=== PATIENT | female | born 1955 | race Caucasian/White ===

== ENCOUNTER 2019-10-25 13:24 | Outpatient (CLI) | payer OTHER, SELFPAY ==
[2019-10-25 13:30] VITALS: BP 107/71; PULSE 55; RESP 16; TEMP 37; O2SAT 98
[2019-10-25] MEDS: denosumab 60 mg SDV SUBCUT (13:50)
[2019-10-25 14:03] VITALS: BP 127/84; PULSE 55; RESP 16; TEMP 37.1
== END 2019-10-25 13:25 | disposition home or self-care (01) ==
LOC: RHEOACUTE 13:25
PROVIDERS: Family Provider Family Medicine; PCP Family Medicine; Visit Provider Internal Medicine Rheumatology
DX: M81.0 Age-related osteoporosis without current pathological fracture (principal)
CPT/HCPCS: 96372; J0897

== ENCOUNTER 2020-04-09 13:19 | Observation (INO) | payer OTHER, SELFPAY ==
[2020-04-09] VITALS (7 sets, daily range): BP systolic 115–140; BP diastolic 72–94; PULSE 76–128; RESP 15–24; TEMP 36.5–36.8; O2SAT 93–100; BMI 23.6
--- NOTE | 2020-04-09 13:37 | W.ED.CHESTPA ---
HPI - Chest Pain General: Chief Complaint: Chest Pain Stated Complaint: heart problems Time Seen by Provider: 04/09/20 13:36 History of Present Illness: HPI narrative: 64-year-old female comes in with chest discomfort. Shortly after arrival she developed A. fib with RVR she had some episodes this morning her she was weak and dizzy especially with exertion. She was seen at urgent care clinic over the weekend had a serous otitis media. She had previously been diagnosed with hypertension but is not currently on any medications. She has some chest pain which she relates to being reflux she has had it intermittently has not really changed any significant level. There is no radiation to the neck or arms. MD complaint: chest discomfort Onset (ago): minute(s) Timing of current episode: episodic Prior episodes: No Onset: during rest Pain location: left chest Pain radiation: none Severity: mild Quality: heaviness Relieving factors: nothing Exacerbating factors: nothing Associated symptoms: Reports dyspnea and palpitations; Deny abdominal pain, diaphoresis, fever(s), leg edema, nausea, sense of impending doom, syncope, vomiting or other Treatment prior to arrival: none Review of Systems Const: Denies: fever(s) or diaphoresis ENMT: Denies: throat pain, ear or mastoid pain, nasal discharge or nasal congestion Card: Reports: palpitations; Denies: syncope Resp: Reports: dyspnea GI: Denies: abdominal pain, nausea or vomiting : Denies: flank pain, difficulty voiding, dysuria, urinary frequency or urinary urgency Skin/Breast: Denies: rash or pruritus PFS ED PFSH: Medical History Family history of coronary artery disease Gastritis GERD (gastroesophageal reflux disease) Surgical History Status post appendectomy Status post cholecystectomy Status post hysterectomy Family History Father Stroke Atrial fibrillation Mother CAD (coronary artery disease) Social History Smoking and tobacco status: never smoked Alcohol intake: never Physical Exam Const: COMMON NORMALS: no acute distress GENERAL APPEARANCE: cooperative and comfortable ORIENTATION/CONSCIOUSNESS: Yes awake, Yes oriented to person, Yes oriented to place and Yes oriented to time HENMT: COMMON NORMALS: normocephalic, atraumatic, hearing grossly normal bilaterally, external ears normal, EAC's normal, TM's normal bilaterally, Normal nasal mucous membranes and turbinates present, moist oral mucous membranes and oropharynx normal HEAD & SCALP: normocephalic and atraumatic NOSE: Normal nasal mucous membranes and turbinates present EXTERNAL EAR: Yes external ears normal EXTERNAL AUDITORY CANAL: EAC's normal TYMPANIC MEMBRANE: TM's normal bilaterally Eye: COMMON NORMALS: Equal, round and reactive pupils present, EOMs intact bilaterally, conjunctivae normal and no scleral icterus CONJUNCTIVA: Yes conjunctivae normal PUPIL: Yes Equal, round and reactive pupils present Neck/C-Spine: COMMON NORMALS: full ROM, no lymphadenopathy, supple and no JVD Lymph: LYMPHATIC: no lymphadenopathy noted and no lymphedema noted Resp: COMMON NORMALS: normal respiratory effort, No retractions, No use of accessory muscles and clear to auscultation bilaterally AUSCULTATION: clear to auscultation bilaterally Cardio: COMMON NORMALS: no JVD and No murmurs present (Cardio) RATE: tachycardic RHYTHM: abnormal rhythm irregularly irregular GI: COMMON NORMALS: Soft to palpation and No hepatosplenomegaly present AUSCULTATION: Yes normoactive bowel sounds PALPATION: Yes Soft to palpation, No Tenderness to palpation present (GI), No Guarding due to palpation present (GI) and Yes No hepatosplenomegaly present Extremity: COMMON NORMALS: normal to inspection, capillary refill normal, no clubbing, cyanosis or edema, no calf tenderness and no pedal edema Neuro: SENSORIUM/ORIENTATION: Yes oriented to person, Yes oriented to place and Yes oriented to time Skin: COMMON NORMALS: no rashes or lesions noted GENERAL SKIN EXAM: no rashes or lesions noted Course Vital Signs: Vital signs: Vital Signs Temperature 97.9 F 04/10/20 14:23 Pulse Rate 50 L 04/10/20 14:23 Respiratory Rate 13 04/10/20 14:23 Blood Pressure 111/73 04/10/20 14:23 Pulse Oximetry 100 04/10/20 14:23 MDM - Chest Pain MDM Narrative: Medical decision making narrative: Patient has new onset A. fib with rapid ventricular response she was given IV Lopressor and p.o. Lopressor will observe her overnight to make sure we retain rate control and evaluate for potential causes. Discussed with hospitalist will admit Lab Data: Labs: Lab Results 04/09/20 04/09/20 04/09/20 Range/Units 13:53 13:53 13:53 WBC 12.0 H (4.0-10.0) 10^3/ uL RBC 5.22 (4.1-5.3) 10^6/u L Hgb 15.6 H (11.5-15.3) g/dL Hct 47.6 H (37.0-47.0) % MCV 91.2 (81-99) fL MCH 29.9 (28.0-34.0) pg MCHC 32.8 (30.0-36.0) g/dL RDW 12.3 (12.1-15.1) % Plt Count 321 (130-400) 10^3/c mm MPV 9.9 (7.4-10.4) fL Neut % (Auto) 52.9 % Lymph % (Auto) 36.5 % [place] % (Auto) 9.3 % Eos % (Auto) 0.6 % Baso % (Auto) 0.3 % Neut # (Auto) 6.34 (1.8-7.7) 10^3/u L Lymph # (Auto) 4.4 (0.8-4.8) 10^3/u L [place] # (Auto) 1.1 H (0.2-0.9) 10^3/u L Eos # (Auto) 0.1 (0.0-0.8) 10^3/u L Baso # (Auto) 0.0 (0.0-0.1) 10^3/u L Nucleated RBC % (a uto) 0 % Nucleated RBCs # 0.0 /100WBC Sodium 140 (136-145) mmol/L Potassium 3.2 L (3.5-5.1) mmol/L Chloride 101 (98-107) mmol/L Carbon Dioxide 26 (22-29) mmol/L Anion Gap 16.2 (5-19) BUN 18 (8-23) mg/dL Creatinine 0.7 (0.5-0.9) mg/dL GFR Calculation 84.8 L (90-130) mL/min Glucose 89 (65-115) mg/dL Estimat Average Gl ucose Hemoglobin A1c (4.0-6.0) % Calculated Osmolal ity 286 (285-295) mOsm/k g Calcium 10.0 (8.5-10.5) mg/dL Magnesium (1.7-2.3) mg/dL Total Bilirubin 0.4 (0.15-1.2) mg/dL AST 17 (0-32) U/L ALT 15 (0-33) U/L Alkaline Phosphata se 69 (35-105) IU/L Troponin T Baselin e 11 H (0-10) ng/L NT-Pro-B Natriuret Pep (0-125) pg/mL Total Protein 7.8 (6.6-8.7) g/dL Albumin 4.8 (3.5-5.2) g/dL Globulin 3.0 (1.3-4.6) g/dL TSH (0.27-4.20) uIU/ mL Urine Color (Yellow) Urine Appearance (CLEAR) Urine pH (5-7) Ur Specific Gravit y (1.005-1.030) Urine Protein (Negative) Urine Glucose (UA) (Normal) Urine Ketones (Negative) Urine Blood (Negative) Urine Nitrate (Negative) Urine Bilirubin (NEGATIVE) Prot Sulfosalicyli c Acd (Negative) Urine Urobilinogen (Negative) mg/dL Ur Leukocyte Pretty ase (Negative) Urine RBC (0-2) /hpf Urine WBC (0-5) /hpf Ur Squamous Epith Cells (0-5) Amorphous Sediment Urine Bacteria (NONE) 04/09/20 04/09/20 04/09/20 Range/Units 13:53 13:53 13:53 WBC (4.0-10.0) 10^3/ uL RBC (4.1-5.3) 10^6/u L Hgb (11.5-15.3) g/dL Hct (37.0-47.0) % MCV (81-99) fL MCH (28.0-34.0) pg MCHC (30.0-36.0) g/dL RDW (12.1-15.1) % Plt Count (130-400) 10^3/c mm MPV (7.4-10.4) fL Neut % (Auto) % Lymph % (Auto) % [place] % (Auto) % Eos % (Auto) % Baso % (Auto) % Neut # (Auto) (1.8-7.7) 10^3/u L Lymph # (Auto) (0.8-4.8) 10^3/u L [place] # (Auto) (0.2-0.9) 10^3/u L Eos # (Auto) (0.0-0.8) 10^3/u L Baso # (Auto) (0.0-0.1) 10^3/u L Nucleated RBC % (a uto) % Nucleated RBCs # /100WBC Sodium (136-145) mmol/L Potassium (3.5-5.1) mmol/L Chloride (98-107) mmol/L Carbon Dioxide (22-29) mmol/L Anion Gap (5-19) BUN (8-23) mg/dL Creatinine (0.5-0.9) mg/dL GFR Calculation (90-130) mL/min Glucose (65-115) mg/dL Estimat Average Gl ucose 108 Hemoglobin A1c 5.4 (4.0-6.0) % Calculated Osmolal ity (285-295) mOsm/k g Calcium (8.5-10.5) mg/dL Magnesium 2.3 (1.7-2.3) mg/dL Total Bilirubin (0.15-1.2) mg/dL AST (0-32) U/L ALT (0-33) U/L Alkaline Phosphata se (35-105) IU/L Troponin T Baselin e (0-10) ng/L NT-Pro-B Natriuret Pep 1091 H (0-125) pg/mL Total Protein (6.6-8.7) g/dL Albumin (3.5-5.2) g/dL Globulin (1.3-4.6) g/dL TSH 4.53 H (0.27-4.20) uIU/ mL Urine Color (Yellow) Urine Appearance (CLEAR) Urine pH (5-7) Ur Specific Gravit y (1.005-1.030) Urine Protein (Negative) Urine Glucose (UA) (Normal) Urine Ketones (Negative) Urine Blood (Negative) Urine Nitrate (Negative) Urine Bilirubin (NEGATIVE) Prot Sulfosalicyli c Acd (Negative) Urine Urobilinogen (Negative) mg/dL Ur Leukocyte Pretty ase (Negative) Urine RBC (0-2) /hpf Urine WBC (0-5) /hpf Ur Squamous Epith Cells (0-5) Amorphous Sediment Urine Bacteria (NONE) 04/09/20 Range/Units 14:51 WBC (4.0-10.0) 10^3/ uL RBC (4.1-5.3) 10^6/u L Hgb (11.5-15.3) g/dL Hct (37.0-47.0) % MCV (81-99) fL MCH (28.0-34.0) pg MCHC (30.0-36.0) g/dL RDW (12.1-15.1) % Plt Count (130-400) 10^3/c mm MPV (7.4-10.4) fL Neut % (Auto) % Lymph % (Auto) % [place] % (Auto) % Eos % (Auto) % Baso % (Auto) % Neut # (Auto) (1.8-7.7) 10^3/u L Lymph # (Auto) (0.8-4.8) 10^3/u L [place] # (Auto) (0.2-0.9) 10^3/u L Eos # (Auto) (0.0-0.8) 10^3/u L Baso # (Auto) (0.0-0.1) 10^3/u L Nucleated RBC % (a uto) % Nucleated RBCs # /100WBC Sodium (136-145) mmol/L Potassium (3.5-5.1) mmol/L Chloride (98-107) mmol/L Carbon Dioxide (22-29) mmol/L Anion Gap (5-19) BUN (8-23) mg/dL Creatinine (0.5-0.9) mg/dL GFR Calculation (90-130) mL/min Glucose (65-115) mg/dL Estimat Average Gl ucose Hemoglobin A1c (4.0-6.0) % Calculated Osmolal ity (285-295) mOsm/k g Calcium (8.5-10.5) mg/dL Magnesium (1.7-2.3) mg/dL Total Bilirubin (0.15-1.2) mg/dL AST (0-32) U/L ALT (0-33) U/L Alkaline Phosphata se (35-105) IU/L Troponin T Baselin e (0-10) ng/L NT-Pro-B Natriuret Pep (0-125) pg/mL Total Protein (6.6-8.7) g/dL Albumin (3.5-5.2) g/dL Globulin (1.3-4.6) g/dL TSH (0.27-4.20) uIU/ mL Urine Color Straw (Yellow) Urine Appearance Clear (CLEAR) Urine pH 8 H (5-7) Ur Specific Gravit y 1.010 (1.005-1.030) Urine Protein Neg (Negative) Urine Glucose (UA) Norm (Normal) Urine Ketones Negative (Negative) Urine Blood Neg (Negative) Urine Nitrate Negative (Negative) Urine Bilirubin Neg (NEGATIVE) Prot Sulfosalicyli c Acd Negative (Negative) Urine Urobilinogen Norm (Negative) mg/dL Ur Leukocyte Pretty ase Trace H (Negative) Urine RBC 0-4 H (0-2) /hpf Urine WBC 0-4 H (0-5) /hpf Ur Squamous Epith Cells 0-4 H (0-5) Amorphous Sediment Not Reportable Urine Bacteria Trace (NONE) Discharge Plan Discharge Patient Disposition: Admitted As Inpatient Admit Provider: Christopher Vaughan Condition: Stable Referrals: Natalie Loomis MD [Physician] - 1 week (YOU WILL HAVE A FOLLOW UP APPOINTMENT WITH DR LOOMIS IN [facility] ON Wednesday AT 0915 TO DO YOUR CHECK IN. IF THERE ARE ANY QUESTIONS PLEASE CALL HEART CARE SERVICES AT [phone]) Osman Arriaza MD [Primary Care Provider] - 4-7 days (YOU WILL HAVE A FOLLOW UP APPOINTMENT WITH DR. ARRIAZA AT [facility] ON March AT 10:00. IF YOU HAVE ANY QUESTIONS PLEASE CALL [phone].) Discharge Diet: Cardiac Discharge Activity: Resume usual activity Patient Instructions: Metoprolol (By mouth), Aspirin (By mouth), Atorvastatin (By mouth), Apixaban (By mouth), Atrial Fibrillation (DC), Chest Pain (DC), Chest Pain Stoplight Additional Instructions: -If you have chest pain or shortness of breath please come back to the emergency room -Please take metoprolol as prescribed, if you feel lightheaded or dizzy after taking the medication please stop in call primary care -If you repeat episodes of chest palpitations come back to the emergency room -Please follow-up with cardiology in 1 week -If you have bloody or black stools please come back to the emergency room Discharge Date/Time: 04/09/20 15:57 Coding Level of Care Code ED Radial Router Operator for Sugey Nolan
--- NOTE | 2020-04-09 13:52 | XRR_ITS ---
PROCEDURE INFORMATION: Exam: XR Chest, 1 View Exam date and time: 04/09/2020 1:54 PM Age: 64 years old Clinical indication: Dyspnea TECHNIQUE: Imaging protocol: XR of the chest Views: 1 view. COMPARISON: No relevant prior studies available. FINDINGS: Lungs: Unremarkable. No consolidation. Pleural space: Unremarkable. No pleural effusion. No pneumothorax. Heart/Mediastinum: Unremarkable. No cardiomegaly. Bones/joints: Unremarkable. XR/XR chest 1V portable [id number] IMPRESSION: No acute findings.
--- NOTE | 2020-04-09 13:52 | ECG_ITS ---
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 Measurements Intervals [place] Rate: 128 P: NM: -1 QRS: 51 QRSD: 74 T: 39 QT: 293 QTc: 429 Interpretive Statements ATRIAL FIBRILLATION WITH RAPID VENTRICULAR RESPONSE ST DEPRESSION, CONSIDER SUBENDOCARDIAL INJURY [0.1+ mV ST DEPRESSION] No previous ECG available for comparison Electronically Signed On 04-09-2020 17:28:20 CDT by Nyasia Sánchez M.D. [id number]
[2020-04-09 13:59] LABS: Basophils % 0.3 %; Eosinophils # 0.1 10^3/uL (0.0-0.8); Eosinophils % 0.6 %; Hematocrit 47.6 % (37.0-47.0); Hemoglobin 15.6 g/dL (11.5-15.3); Lymphocytes # 4.4 10^3/uL (0.8-4.8); Lymphocytes % 36.5 %; Mean Corpuscular HGB Conc 32.8 g/dL (30.0-36.0); Mean Corpuscular Hemoglobin 29.9 pg (28.0-34.0); Mean Corpuscular Volume 91.2 fL (81-99); Mean Platelet Volume 9.9 fL (7.4-10.4); Monocytes # 1.1 10^3/uL (0.2-0.9); Monocytes % 9.3 %; Neutrophils # 6.34 10^3/uL (1.8-7.7); Neutrophils % 52.9 %; Nucleated Red Blood Cells % 0 %; Platelet Count 321 10^3/cmm (130-400); Red Blood Count 5.22 10^6/uL (4.1-5.3); Red Cell Distribution Width 12.3 % (12.1-15.1)
[2020-04-09] MEDS: metoprolol tartrate 25 mg Tablet PO (14:00)
[2020-04-09] MEDS: metoprolol tartrate 1 mg/1 mL SDV 5 mL 5 MG IV (14:00)
[2020-04-09] MEDS: sodium chloride 0.9% 500 ML 999 ML IV (14:00)
[2020-04-09 14:19] LABS: Alanine Aminotransferase 15 U/L (0-33); Albumin Level 4.8 g/dL (3.5-5.2); Alkaline Phosphatase 69 IU/L (35-105); Aspartate Amino Transferase 17 U/L (0-32); Blood Urea Nitrogen 18 mg/dL (8-23); Carbon Dioxide 26 mmol/L (22-29); Chloride 101 mmol/L (98-107); Glomerular Filtration Rate 84.8 mL/min (90-130); Glucose 89 mg/dL (65-115); Osmolality Calculated 286 mOsm/kg (285-295); Sodium 140 mmol/L (136-145); Total Bilirubin 0.4 mg/dL (0.15-1.2); Total Protein 7.8 g/dL (6.6-8.7)
[2020-04-09 14:20] LABS: Anion Gap 16.2 (5-19); Potassium 3.2 mmol/L (3.5-5.1); Troponin(5th) Baseline 11 ng/L (0-10)
[2020-04-09 14:25] LABS: Thyroid Stimulating Hormone 4.53 uIU/mL (0.27-4.20)
[2020-04-09 15:39] LABS: Urine Appearance Clear (CLEAR); Urine Color Straw (Yellow)
[2020-04-09 15:40] LABS: Add Urine Microscopic? YES; Bilirubin Urine Neg (NEGATIVE); Blood Urine Neg (Negative); Glucose Urine UA Norm (Normal); Ketones Urine Negative (Negative); Leukocyte Esterase Urine Trace (Negative); Nitrate Urine Negative (Negative); Protein Urine Neg (Negative); Sulfosalicylic Acid Urine Negative (Negative); Urobilinogen Urine Norm (Negative); pH Urine 8 (5-7)
[2020-04-09 15:41] LABS: Add Urine Culture? No; Bacteria Urine TRACE; RBC Urine 0-4 /hpf (0-2); Squamous Epithelial Cell Urine 0-4 (0-5); WBC Urine 0-4 /hpf (0-5)
--- NOTE | 2020-04-09 15:52 | ECG_ITS ---
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 Measurements Intervals [place] Rate: 96 P: NM: -1 QRS: 34 QRSD: 87 T: 3 QT: 337 QTc: 426 Interpretive Statements ATRIAL FIBRILLATION MODERATE ST DEPRESSION [0.05+ mV ST DEPRESSION] Compared to ECG 04/09/2020 13:31:52 No significant changes Electronically Signed On 04-09-2020 17:30:06 CDT by Nyasia Sánchez M.D. [id number]
--- NOTE | 2020-04-09 16:04 | PM.HP ---
Providers/Chief Complaint Admitting Physician: Christopher Vaughan MD Primary Care Provider: Osman Askew MD Chief Complaint: heart problems History of Present Illness Surekha Pantoja is a 64 year old female with a past medical history of hypertension, GERD, no significant cardiac history, who presents to [facility] due to complaints of chest pain, palpitations, shortness of breath, presyncopal symptoms of lightheadedness, dizziness. Patient states that she over the weekend had some left ear fullness, was prescribed prednisone, her left ear was feeling better, she was feeling better. However this morning she woke up having episodes of intermittent chest palpitations, chest pain, she could really feel her heartbeat fast, she felt short of breath, she felt lightheaded, dizziness, so she presented to [facility] for further evaluation. No history of strokes, no stroke like symptoms, no facial droop, no paralysis, no paresthesias, no slurring of his speech. Patient tells me that she has a lot of substernal burning sensation related to GERD, so she watches what she eats, she states that the pantoprazole typically helps with her anterior chest discomfort. She does not really have a cardiac history, she did present to [facility] in 2007 for chest pain, had a negative cardiac work-up. Does have an extensive family history of CAD. No history of atrial fibrillation in the past. No history of hyperthyroidism. No history of smoking. No history of lung disease. In the emergency room patient was found to have A. fib heart rates in the 128, with some lateral ST depressions, was given 5 mg of IV metoprolol followed by 25 mg p.o. metoprolol, she remains in atrial fibrillation, but the heart rates are in the 90s to 100s, she is feeling better. Review of Systems Const: Denies: fever(s), chills, fatigue or malaise Eyes: Denies: change in vision or blurry vision ENMT: Denies: nasal congestion Card: Reports: chest pain, palpitations, irregular heart rhythm, lightheadedness and pre-syncope Resp: Reports: dyspnea; Denies: productive cough, non-productive cough or wheezing GI: Denies: abdominal pain, nausea, vomiting, hematemesis, diarrhea, constipation, hematochezia or melena : Denies: flank pain, dysuria or urinary frequency Musc: Denies: neck pain or back pain Skin/Breast: Denies: rash Neuro: Denies: headache(s), dizziness or vertigo Psych: Denies: anxiety or depression Endo: Denies: polyuria or polydipsia Medications/Allergies Home Medications Medication Instructions Recorded Confirmed Last Taken Type Dgl 1 tab PO DAILY 04/09/20 04/09/20 Unknown History Pretty-C with Bioflavonoids 1 tab PO DAILY 04/09/20 04/09/20 04/08/20 History Members [facility] 1 tab PO DAILY 04/09/20 04/09/20 04/08/20 History Probiotic 1 cap PO DAILY 04/09/20 04/09/20 Unknown History amlodipine 7.5 mg PO DAILY 04/09/20 04/09/20 04/09/20 History digestive enzymes [Enzyme Digest] 1 cap PO DAILY 04/09/20 04/09/20 Unknown History magnesium 1 tab PO DAILY 04/09/20 04/09/20 04/08/20 History multivitamin [Multiple Vitamins] 1 tab PO DAILY 04/09/20 04/09/20 04/08/20 History pantoprazole 40 mg PO DAILY 04/09/20 04/09/20 04/08/20 History prednisone 40 mg PO DAILY 04/09/20 04/09/20 04/08/20 History Allergies Allergy/AdvReac Type Severity Reaction Status Date / Time Sulfa (Sulfonamide Allergy ALGY-Joint Verified 04/09/20 14:19 Antibiotics) Pain PFSH Acute PFSH: Medical History (Updated 04/09/20 @ 16:12 by Christopher Vaughan MD) Family history of coronary artery disease Gastritis GERD (gastroesophageal reflux disease) Surgical History (Updated 04/09/20 @ 16:10 by Christopher Vaughan MD) Status post appendectomy Status post cholecystectomy Status post hysterectomy Family History (Updated 04/09/20 @ 16:10 by Christopher Vaughan MD) Father Stroke Atrial fibrillation Mother CAD (coronary artery disease) Social History (Updated 04/09/20 @ 16:11 by Christopher Vaughan MD) Smoking and tobacco status: never smoked Alcohol intake: never Substance/Drug Use: never Vitals/I&O/Wt Last Vital Signs Temp 98.3 F 08/25/20 13:24 Pulse 76 04/09/20 15:56 Resp 16 04/09/20 15:56 BP 128/76 04/09/20 15:56 Pulse Ox 97 04/09/20 15:56 Weight last 48 hrs Weight 62.596 kg Physical Exam Const: COMMON NORMALS: no acute distress and patient oriented x3 GENERAL APPEARANCE: cooperative and comfortable HENMT: COMMON NORMALS: normocephalic HEAD & SCALP: normocephalic Eye: COMMON NORMALS: Equal, round and reactive pupils present and EOMs intact bilaterally GENERAL EYE: appearance normal, both eyes and all related structures PUPIL: Yes Equal, round and reactive pupils present DIRECT OPHTHALMOSCOPY: Yes no papilledema Neck/C-Spine: COMMON NORMALS: full ROM, no lymphadenopathy, no JVD and Thyroid normal THYROID: Thyroid normal Lymph: LYMPHATIC: no lymphadenopathy noted Resp: COMMON NORMALS: normal respiratory effort, No retractions, No use of accessory muscles and clear to auscultation bilaterally AUSCULTATION: clear to auscultation bilaterally Cardio: COMMON NORMALS: no JVD, regular rate, regular rhythm, S1 normal heart sound present, S2 normal heart sound present, No gallops present (Cardio), No clicks present (Cardio) and No murmurs present (Cardio) RATE: regular rate RHYTHM: abnormal rhythm HEART SOUNDS: S1 normal heart sound present and S2 normal heart sound present GI: COMMON NORMALS: Normal to inspection, nondistended, normoactive bowel sounds present, Soft to palpation, non-tender and No hepatosplenomegaly present PALPATION: Yes Soft to palpation and Yes No hepatosplenomegaly present Extremity: COMMON NORMALS: normal to inspection, full ROM and no pedal edema Neuro: COMMON NORMALS: patient oriented x3, CN's II-XII intact bilaterally, moves all extremities and no focal motor deficits Psych: COMMON NORMALS: mental status grossly normal, Normal thought process present and cooperative THOUGHT PROCESS: Normal thought process present Data : 04/09/20 13:53 04/09/20 13:53 A&P Assessment and plan (1) New onset atrial fibrillation: -Chest pain, palpitations, shortness of breath, presyncopal episodes likely related to atrial fibrillation -Heart rates in the 128 in the ER, EKG showed atrial fibrillation, with lateral ST depressions, received 5 mg of IV metoprolol, 25 mg of p.o. metoprolol, heart rates in the 90s-100s, feeling better, symptom-free -In 2007 patient had complaints of chest pain, palpitations, had a relatively unremarkable echocardiogram, showed small area of slightly decreased persistent tracer uptake in the apical anterior septal region likely representing attenuation artifact, left ventricular wall motion analysis revealed hypokinesia of the basal and mid inferior wall region, was started on Coreg on that time, but seems to be discontinued Plan: -Admit to cardiac stepdown unit -Telemetry monitoring -Continue serial EKGs, troponins -We will order a cardiac echocardiogram -Start metoprolol 50 twice daily -We will add Eliquis 5 mg twice daily -Monitor for bloody black stools, monitor hemoglobin -We will continue to monitor, if abnormal EKGs or troponins, or abnormal echocardiogram, will proceed to stress testing -Follow TSH, magnesium -Full code -Eliquis for DVT prophylaxis Status: Acute (2) Gastritis: Status: Acute (3) GERD (gastroesophageal reflux disease): Status: Acute (4) Hypertension: Status: Acute Attestations Medical Necessity Statement*: Patient requires hospitalization, outpatient with observation, for new onset atrial fibrillation, chest pain Coding Level of Care Code Acute Clinical Liaison for [facility] Fwd Diagnoses New onset atrial fibrillation I48.91 Gastritis K29.70 GERD (gastroesophageal reflux disease) K21.9 Hypertension I10
--- NOTE | 2020-04-09 16:28 | USCV_ITS ---
Surekha Pantoja Age: 64 Gender: F : 1955 Exam Date: 04/09/2020 16:57 Ordering Phys: Nicholas Dominguez DO Technologist: Rossi Mederos Exam Location: [facility] [place] Indication: new onset a fib BP: 128 / 86 HR: 93 Rhythm: Atrial fibrillation Technical Quality: Good MEASUREMENTS (Male / Female) Normal Values 2D ECHO LV Diastolic Diameter PLAX 3.7 cm 4.2 - 5.9 / 3.9 - 5.3 cm LV Systolic Diameter PLAX 2.5 cm IVS Diastolic Thickness 1.1 cm 0.6 - 1.0 / 0.6 - 0.9 cm IVS Systolic Thickness 1.3 cm LVPW Diastolic Thickness 0.9 cm 0.6 - 1.0 / 0.6 - 0.9 cm LVPW Systolic Thickness 1.5 cm LVOT Diameter 2.0 cm LV Ejection Fraction 2D Teich 60.1 % LV Ejection Fraction MOD 2C 76.7 % LV Ejection Fraction 2C AL 79.8 % LA Diameter 2.5 cm LA Width 2.5 cm LA Height 4.8 cm RA Width 2.6 cm RA Height 4.6 cm M-MODE LV Diastolic Diameter MM 3.9 cm 4.2 - 5.9 / 3.9 - 5.3 cm LV Systolic Diameter MM 3.0 cm LV Ejection Fraction MM Teich 49.8 % IVS Diastolic Thickness MM 0.9 cm 0.6 - 1.0 / 0.6 - 0.9 cm IVS Systolic Thickness MM 1.0 cm LVPW Diastolic Thickness MM 0.8 cm 0.6 - 1.0 / 0.6 - 0.9 cm LVPW Systolic Thickness MM 1.3 cm Aortic Annulus Diameter 3.0 cm LA Ao Ratio MM 0.8 MV E Point Septal Separation 0.4 cm DOPPLER AV Peak Velocity 139.0 cm/s LVOT Peak Velocity 138.0 cm/s AV Area Cont Eq vti 3.3 cm squared AV Area Cont Eq pk 3.2 cm squared MV Peak Velocity 93.0 cm/s MV Area PHT 5.1 cm squared Mitral E to A Ratio 3.1 MV E' Velocity 17.0 cm/s Mitral E to MV E' Ratio 5.6 Mitral E to LV E' Lateral Ratio 4.8 Mitral E to LV E' Septal Ratio 6.8 TR Peak Velocity 176.0 cm/s TR Peak Gradient 12.4 mmHg Right Atrial Pressure 3.0 mmHg Pulmonary Artery Systolic Pressu 15.4 mmHg PV Peak Velocity 71.0 cm/s RV Acceleration Time 0.1 s FINDINGS Left Ventricle Normal left ventricular size, systolic function and wall thickness, with no regional wall motion abnormalities. LVEF is 55 to 60%. Normal left ventricular wall thickness. Diastolic function is indeterminate because of atrial fibrillation. Right Ventricle The right ventricle is normal in size and function. Right Atrium The right atrium is normal in size. Left Atrium The left atrium is normal in size. Mitral Valve Structurally normal mitral valve without significant stenosis or prolapse. There is no mitral regurgitation. Aortic Valve Structurally normal aortic valve without significant sclerosis or stenosis. There is no aortic regurgitation. Tricuspid Valve Structurally normal tricuspid valve without significant stenosis. RVSP is 15-20. RA pressure is normal Pulmonic Valve Structurally normal pulmonic valve without significant stenosis. There is no pulmonic regurgitation. Pericardium Normal pericardium without effusion. Aorta Normal ascending aorta dimension. CONCLUSIONS Normal LV systolic function with EF of 55 to 60%. Diastolic function is indeterminate because of atrial fibrillation. Jian Rivera MD (Electronically Signed) Final Date: 09 April 2020 19:19 S
[2020-04-09 16:31] LABS: Troponin 5 2HR 12.03 ng/L (0-10); Troponin 5 2HR Delta 1.03 ABS# (0-10)
[2020-04-09] MEDS: potassium chloride ER 10 mEq Tablet 40 MEQ PO (16:38)
--- NOTE | 2020-04-09 16:38 | PC.NURSE ---
Patient arrived to CSU from ER. Patient a fib, 80-90s on monitor. Patient denies any SOB or CP. All other vitals WNL. Nurse to continue to monitor.
[2020-04-09 16:57] LABS: Estmated Average Glucose 108; Hemoglobin A1C 5.4 % (4.0-6.0)
[2020-04-09 17:09] LABS: Magnesium 2.3 mg/dL (1.7-2.3); NT Pro B Type Natriuretic Pept 1091 pg/mL (0-125)
[2020-04-09] MEDS: metoprolol tartrate 50 mg Tablet PO (17:11)
[2020-04-09] MEDS: apixaban 5 mg Tablet PO (17:11)
--- NOTE | 2020-04-09 19:52 | ECG_ITS ---
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 Measurements Intervals [place] Rate: 87 P: [place]: -1 QRS: 32 QRSD: 96 T: 24 QT: 359 QTc: 433 Interpretive Statements ATRIAL FIBRILLATION MODERATE ST DEPRESSION [0.05+ mV ST DEPRESSION] Compared to ECG 04/09/2020 17:26:01 No significant changes Electronically Signed On 04-10-2020 10:28:54 CDT by Jian Rivera M.D. [id number]
[2020-04-09 20:27] LABS: Troponin 5 6HR 11.75 ng/L (0-10); Troponin 5 6HR Delta 0.75 ng/L (0-12)
[2020-04-10] VITALS: BP 122/89; PULSE 83; RESP 11
[2020-04-10 03:08] VITALS: BP 108/66; PULSE 48; RESP 19; TEMP 36.6; O2SAT 98
[2020-04-10 03:58] LABS: Basophils % 0.1 %; Eosinophils # 0.1 10^3/uL (0.0-0.8); Eosinophils % 1.4 %; Hematocrit 45.8 % (37.0-47.0); Hemoglobin 14.7 g/dL (11.5-15.3); Lymphocytes # 3.7 10^3/uL (0.8-4.8); Lymphocytes % 46.2 %; Mean Corpuscular HGB Conc 32.1 g/dL (30.0-36.0); Mean Corpuscular Hemoglobin 30.2 pg (28.0-34.0); Monocytes # 0.7 10^3/uL (0.2-0.9); Monocytes % 8.9 %; Neutrophils # 3.43 10^3/uL (1.8-7.7); Neutrophils % 43.1 %; Nucleated Red Blood Cells % 0 %; Platelet Count 278 10^3/cmm (130-400); Red Blood Count 4.87 10^6/uL (4.1-5.3); Red Cell Distribution Width 12.6 % (12.1-15.1)
[2020-04-10 04:19] LABS: Alanine Aminotransferase 13 U/L (0-33); Albumin Level 4.3 g/dL (3.5-5.2); Alkaline Phosphatase 59 IU/L (35-105); Anion Gap 10.5 (5-19); Aspartate Amino Transferase 13 U/L (0-32); Blood Urea Nitrogen 23 mg/dL (8-23); Carbon Dioxide 28 mmol/L (22-29); Chloride 105 mmol/L (98-107); Creatinine Clr Calc Pharmacy 59.1977; Globulin 2.6 g/dL (1.3-4.6); Glomerular Filtration Rate 63.4 mL/min (90-130); Glucose 87 mg/dL (65-115); Magnesium 2.3 mg/dL (1.7-2.3); Osmolality Calculated 284 mOsm/kg (285-295); Phosphorus 3.9 mg/dL (2.5-4.5); Potassium 4.5 mmol/L (3.5-5.1); Sodium 139 mmol/L (136-145); Total Bilirubin 0.3 mg/dL (0.15-1.2); Total Protein 6.9 g/dL (6.6-8.7)
[2020-04-10 04:20] LABS: Chol HDL Ratio 3.77 mg/dL (0.0-4.40); Cholesterol 215 mg/dL (0-200); HDL Cholesterol 57 mg/dL (60-100); LDL Cholesterol Calculated 124 mg/dL (50-129); LDL HDL Ratio 2.18 RATIO (0.00-3.22); Triglycerides 169 mg/dL (0-150)
--- NOTE | 2020-04-10 06:38 | PC.NURSE ---
Shift Events: Patient remained in a controlled rate of A-fib until she fell asleep. Patient then became bradycardic; patient asymptomatic and stated that this is her baseline. Remained AOx4, VSS. No complaints of pain.
[2020-04-10 07:13] VITALS: BP 119/80; PULSE 47; RESP 15; TEMP 36.7; O2SAT 100
--- NOTE | 2020-04-10 08:09 | PC.NURSE ---
Dr. Vaughan at bedside to discuss plan of care.
[2020-04-10] MEDS: metoprolol tartrate 25 mg Tablet PO (09:00)
[2020-04-10] MEDS: apixaban 5 mg Tablet PO (09:00)
[2020-04-10] MEDS: multivitamin therapeutic Tablet 1 TAB PO (09:00)
[2020-04-10] MEDS: pantoprazole DR 40 mg Tablet PO (09:00)
[2020-04-10 10:44] VITALS: BP 111/73; PULSE 50; RESP 13; TEMP 36.6; O2SAT 100
--- NOTE | 2020-04-10 11:11 | PC.NURSE ---
Patient ambulated in hallway. HR remained in the 50s while ambulating. Patient asymptomatic. Nurse to continue to monitor.
--- NOTE | 2020-04-10 11:36 | PC.NURSE ---
Patient reports upset stomach to nurse. Patient denies any CP states that it is her typical heartburn. Dr. Vaughan notified of patient concerns and that patient received protonix this am. Physician gave verbal order to administer GI coctail PO once. RBVO. Nurse to continue to monitor.
--- NOTE | 2020-04-10 11:52 | P.DS_ITS ---
Discharge Providers Date of Admission: 04/09/20 15:10 Date of Discharge: April 10, 2020 Attending Provider at Admission: Christopher Vaughan MD Attending Provider at Discharge: Christopher Vaughan MD Primary Care Provider: Osman Askew MD Diagnoses at Discharge Discharge Diagnosis (1) New onset atrial fibrillation: Status: Acute (2) Gastritis: Status: Acute (3) GERD (gastroesophageal reflux disease): Status: Acute (4) Hypertension: Status: Acute Reason for Visit Reason for Visit: heart problems Hospital Course Discharge Summary: This is a 64-year-old female with a past medical history of hypertension, GERD, no significant cardiac history, who presents [facility] due to complaints of chest pain, palpitations, shortness of breath, presyncopal symptoms of lightheadedness, dizziness. Patient was admitted to [facility] for new onset atrial fibrillation, in the emergency room her heart rates were in the 120s, received 25 mg metoprolol, and 5 mg IV metoprolol, remained in A. fib, but heart rates in the 90s-100's, she was feeling better. Patient was admitted to cardiac stepdown unit, received telemetry monitoring, started metoprolol 50 twice daily, but due to heart rates in the low 50s asymptomatic although, dose of metoprolol was cut down to 25 twice daily. She was also started Eliquis 5 mg twice daily. No bloody or black stools, no decrease in her hemoglobin. On discharge patient would follow-up in and out of atrial fibrillation, heart rates in the 50s, asymptomatic, ambulating in the hallways of cardiac stepdown unit without significant symptomatology, doing well. Patient will be discharged on Eliquis 5 mg twice daily, metoprolol 25 mg twice daily, with repeat blood work in a week, and a close follow-up with cardiology in 1 week. Patient was advised that if she were to have bloody or black stools to come back to emergency room. Should have chest pain, shortness of breath lightheaded or dizziness come back to the emergency room. On admission, patient's troponins were millimeter elevated, 6-hour troponin XI 0.75 delta 0.75. Triglycerides were high at 169, cholesterol 215, HDL low at 57. Echocardiogram showed an EF of 55 to 60%. Her EKGs did show moderate ST depressions in anterior chest leads, no complaints of chest pain. I have discharged the patient on aspirin 81 mg, atorvastatin 40 mg, metoprolol as above. I will have patient follow-up with cardiology in 1 week for consideration for stress testing. She does have a family history of CAD, have a stress test in 2007 which showed small area of slightly decreased persistent tracer uptake in the apical anterior septal region likely representing attenuation artifact, left ventricular wall motion analysis revealed hypokinesia of the basal and mid inferior wall region. Patient was advised if she would have chest pain, shortness of breath to come back to emergency room. Physical Exam Const: COMMON NORMALS: no acute distress and patient oriented x3 HENMT: COMMON NORMALS: normocephalic HEAD & SCALP: normocephalic Neck/C-Spine: COMMON NORMALS: no JVD Resp: COMMON NORMALS: normal respiratory effort, No retractions, No use of accessory muscles and clear to auscultation bilaterally AUSCULTATION: clear to auscultation bilaterally Cardio: COMMON NORMALS: no JVD, regular rate, regular rhythm, S1 normal heart sound present and S2 normal heart sound present RATE: regular rate RHYTHM: regular rhythm HEART SOUNDS: S1 normal heart sound present and S2 normal heart sound present GI: COMMON NORMALS: Normal to inspection, nondistended, normoactive bowel sounds present, Soft to palpation, non-tender, No hepatosplenomegaly present, no masses and no bruits PALPATION: Yes Soft to palpation and Yes No hepatosplenomegaly present Extremity: COMMON NORMALS: capillary refill normal, no clubbing, cyanosis or edema, no calf tenderness and no pedal edema Neuro: COMMON NORMALS: patient oriented x3 Psych: COMMON NORMALS: mental status grossly normal Discharge Data Data Completed and Pending: Completed Studies During Hospitalization Category Date Time Status XR chest 1V sundeep ble [id number] Stat Exams 04/09/20 13:52 Completed CV echo complete* [id number] Urgent Ultrasound 04/09/20 16:28 Completed Pending at discharge Category Date Time Status Comprehensive Met abolic Panel AM LA BS Lab 04/11/20 04:00 Ordered Comprehensive Met abolic Panel AM LA BS Lab 04/12/20 04:00 Ordered Magnesium AM LABS Lab 04/11/20 04:00 Ordered Magnesium AM LABS Lab 04/12/20 04:00 Ordered Phosphorus AM LAB S Lab 04/11/20 04:00 Ordered Phosphorus AM LAB S Lab 04/12/20 04:00 Ordered Labs from last 24 hours 04/10/20 04/10/20 04/10/20 03:05 03:05 03:05 WBC 8.0 RBC 4.87 Hgb 14.7 Hct 45.8 MCV 94.0 MCH 30.2 MCHC 32.1 RDW 12.6 Plt Count 278 MPV 10.0 Neut % (Auto) 43.1 Lymph % (Auto) 46.2 [place] % (Auto) 8.9 Eos % (Auto) 1.4 Baso % (Auto) 0.1 Neut # (Auto) 3.43 Lymph # (Auto) 3.7 [place] # (Auto) 0.7 Eos # (Auto) 0.1 Baso # (Auto) 0.0 Nucleated RBC % (a uto) 0 Nucleated RBCs # 0.0 Sodium 139 Potassium 4.5 Chloride 105 Carbon Dioxide 28 Anion Gap 10.5 BUN 23 Creatinine 0.9 GFR Calculation 63.4 L Glucose 87 Estimat Average Gl ucose Hemoglobin A1c Calculated Osmolal ity 284 L Calcium 10.0 Phosphorus 3.9 Magnesium 2.3 Total Bilirubin 0.3 AST 13 ALT 13 Alkaline Phosphata se 59 Troponin T Baselin e Troponin T 120 Min lex Delta Troponin T Troponin T Hi Sens 6Hr Troponin T Hi Sens 6Hr Delta NT-Pro-B Natriuret Pep Total Protein 6.9 Albumin 4.3 Globulin 2.6 Triglycerides 169 H Cholesterol 215 H LDL Cholesterol, C alc 124 HDL Cholesterol 57 L LDL/HDL Ratio 2.18 Cholesterol/HDL Ra mio 3.77 TSH Urine Color Urine Appearance Urine pH Ur Specific Gravit y Urine Protein Urine Glucose (UA) Urine Ketones Urine Blood Urine Nitrate Urine Bilirubin Prot Sulfosalicyli c Acd Urine Urobilinogen Ur Leukocyte Pretty ase Urine RBC Urine WBC Ur Squamous Epith Cells Amorphous Sediment Urine Bacteria 04/09/20 04/09/20 04/09/20 19:46 16:02 14:51 WBC RBC Hgb Hct MCV MCH MCHC RDW Plt Count MPV Neut % (Auto) Lymph % (Auto) [place] % (Auto) Eos % (Auto) Baso % (Auto) Neut # (Auto) Lymph # (Auto) [place] # (Auto) Eos # (Auto) Baso # (Auto) Nucleated RBC % (a uto) Nucleated RBCs # Sodium Potassium Chloride Carbon Dioxide Anion Gap BUN Creatinine GFR Calculation Glucose Estimat Average Gl ucose Hemoglobin A1c Calculated Osmolal ity Calcium Phosphorus Magnesium Total Bilirubin AST ALT Alkaline Phosphata se Troponin T Baselin e Troponin T 120 Min lex 12.03 H Delta Troponin T 1.03 Troponin T Hi Sens 6Hr 11.75 H Troponin T Hi Sens 6Hr Delta 0.75 NT-Pro-B Natriuret Pep Total Protein Albumin Globulin Triglycerides Cholesterol LDL Cholesterol, C alc HDL Cholesterol LDL/HDL Ratio Cholesterol/HDL Ra mio TSH Urine Color Straw Urine Appearance Clear Urine pH 8 H Ur Specific Gravit y 1.010 Urine Protein Neg Urine Glucose (UA) Norm Urine Ketones Negative Urine Blood Neg Urine Nitrate Negative Urine Bilirubin Neg Prot Sulfosalicyli c Acd Negative Urine Urobilinogen Norm Ur Leukocyte Pretty ase Trace H Urine RBC 0-4 H Urine WBC 0-4 H Ur Squamous Epith Cells 0-4 H Amorphous Sediment Not Reportable Urine Bacteria Trace 04/09/20 04/09/20 04/09/20 13:53 13:53 13:53 WBC RBC Hgb Hct MCV MCH MCHC RDW Plt Count MPV Neut % (Auto) Lymph % (Auto) [place] % (Auto) Eos % (Auto) Baso % (Auto) Neut # (Auto) Lymph # (Auto) [place] # (Auto) Eos # (Auto) Baso # (Auto) Nucleated RBC % (a uto) Nucleated RBCs # Sodium Potassium Chloride Carbon Dioxide Anion Gap BUN Creatinine GFR Calculation Glucose Estimat Average Gl ucose 108 Hemoglobin A1c 5.4 Calculated Osmolal ity Calcium Phosphorus Magnesium 2.3 Total Bilirubin AST ALT Alkaline Phosphata se Troponin T Baselin e Troponin T 120 Min lex Delta Troponin T Troponin T Hi Sens 6Hr Troponin T Hi Sens 6Hr Delta NT-Pro-B Natriuret Pep 1091 H Total Protein Albumin Globulin Triglycerides Cholesterol LDL Cholesterol, C alc HDL Cholesterol LDL/HDL Ratio Cholesterol/HDL Ra mio TSH 4.53 H Urine Color Urine Appearance Urine pH Ur Specific Gravit y Urine Protein Urine Glucose (UA) Urine Ketones Urine Blood Urine Nitrate Urine Bilirubin Prot Sulfosalicyli c Acd Urine Urobilinogen Ur Leukocyte Pretty ase Urine RBC Urine WBC Ur Squamous Epith Cells Amorphous Sediment Urine Bacteria 04/09/20 04/09/20 04/09/20 13:53 13:53 13:53 WBC 12.0 H RBC 5.22 Hgb 15.6 H Hct 47.6 H MCV 91.2 MCH 29.9 MCHC 32.8 RDW 12.3 Plt Count 321 MPV 9.9 Neut % (Auto) 52.9 Lymph % (Auto) 36.5 [place] % (Auto) 9.3 Eos % (Auto) 0.6 Baso % (Auto) 0.3 Neut # (Auto) 6.34 Lymph # (Auto) 4.4 [place] # (Auto) 1.1 H Eos # (Auto) 0.1 Baso # (Auto) 0.0 Nucleated RBC % (a uto) 0 Nucleated RBCs # 0.0 Sodium 140 Potassium 3.2 L Chloride 101 Carbon Dioxide 26 Anion Gap 16.2 BUN 18 Creatinine 0.7 GFR Calculation 84.8 L Glucose 89 Estimat Average Gl ucose Hemoglobin A1c Calculated Osmolal ity 286 Calcium 10.0 Phosphorus Magnesium Total Bilirubin 0.4 AST 17 ALT 15 Alkaline Phosphata se 69 Troponin T Baselin e 11 H Troponin T 120 Min lex Delta Troponin T Troponin T Hi Sens 6Hr Troponin T Hi Sens 6Hr Delta NT-Pro-B Natriuret Pep Total Protein 7.8 Albumin 4.8 Globulin 3.0 Triglycerides Cholesterol LDL Cholesterol, C alc HDL Cholesterol LDL/HDL Ratio Cholesterol/HDL Ra mio TSH Urine Color Urine Appearance Urine pH Ur Specific Gravit y Urine Protein Urine Glucose (UA) Urine Ketones Urine Blood Urine Nitrate Urine Bilirubin Prot Sulfosalicyli c Acd Urine Urobilinogen Ur Leukocyte Pretty ase Urine RBC Urine WBC Ur Squamous Epith Cells Amorphous Sediment Urine Bacteria Vitals: Last Vital Signs Temp 97.9 F 04/10/20 10:44 Pulse 50 L 04/10/20 10:44 Resp 13 04/10/20 10:44 BP 111/73 04/10/20 10:44 Pulse Ox 100 04/10/20 10:44 Discharge Plan Discharge Patient Disposition: Home Condition: Stable Prescriptions: New metoprolol tartrate 25 mg Tablet 25 mg PO BID 30 Days Qty: 60 RF: 0 Eliquis 5 mg Tablet 5 mg PO BID 30 Days Qty: 60 RF: 0 aspirin 81 mg tablet,delayed release (DR/EC) 81 mg PO DAILY 30 Days Qty: 30 RF: 0 atorvastatin 40 mg tablet 40 mg PO DAILY 30 Days Qty: 30 RF: 0 Continued Multiple Vitamins Tablet 1 tab PO DAILY RF: 0 Enzyme Digest Capsule 1 cap PO DAILY RF: 0 Dgl 1 tab PO DAILY RF: 0 Pretty-C with Bioflavonoids 1 tab PO DAILY RF: 0 Members [facility] 1 tab PO DAILY RF: 0 Probiotic 1 cap PO DAILY RF: 0 magnesium 1 tab PO DAILY RF: 0 Changed pantoprazole 40 mg tablet,delayed release (DR/EC) 40 mg PO BID Qty: 0 RF: 0 Discontinued prednisone 20 mg tablet 40 mg PO DAILY RF: 0 amlodipine 2.5 mg tablet 7.5 mg PO DAILY RF: 0 Discharge Orders: Discharge Order (Routine); Ordered 04/10/20 Ordered By: Christopher Vaughan Other Ambulatory Orders: Complete Blood Count w/Auto (Routine) Timeframe: 1 Week Location: Determined by Patient Ordered By: Christopher Vaughan Comprehensive Metabolic Panel (Routine) Timeframe: 1 Week Facility: [facility] - Location: Lab - Main Lab Ordered By: Christopher Vaughan Referrals: Natalie Clayton MD [Physician] - 1 week Osman Askew MD [Primary Care Provider] - Discharge Diet: Cardiac Discharge Activity: Resume usual activity Patient Instructions: Apixaban (By mouth), Atrial Fibrillation (DC), Chest Pain (DC) Activity Restrictions/Additional Instructions: -If you have chest pain or shortness of breath please come back to the emergency room -Please take metoprolol as prescribed, if you feel lightheaded or dizzy after taking the medication please stop in call primary care -If you repeat episodes of chest palpitations come back to the emergency room -Please follow-up with cardiology in 1 week -If you have bloody or black stools please come back to the emergency room Discharge Attestations Time Spent in Discharge Care*: less than 30 min Quality Metrics Clinical Quality Measures During this hospital stay, did patient experience: None Coding Level of Care Code Acute Electricians Top Helper for g Fwd Diagnoses New onset atrial fibrillation I48.91 Gastritis K29.70 GERD (gastroesophageal reflux disease) K21.9 Hypertension I10
[2020-04-10] MEDS: lidocaine 2% viscous 15 ML, aluminum-mag hydrox-simethicon 30 ML, sucralfate oral liq 1 GM PO (11:58)
--- NOTE | 2020-04-10 13:30 | PC.NURSE ---
Discharge instructions given per the physician's orders. Patient verbalized understanding of information and did not have any further questions. Eliquis coupon has been supplied to patient. IV has been removed. Patient to notify of dc and dress self. Nurse to continue to monitor.
--- NOTE | 2020-04-10 14:18 | PC.CHAP ---
Pastoral Care Encounter/Spiritual Assessment Type of Contact [] Declined fork assembler visit [] Patient/Family/Request visit [] Outpatient visit [] Follow-up visit [] Physician referral [] Code/Alert [X] Routine visit [] Staff referral [] Actively dying [] Patient sleeping [] Family support [] [] Out of room [] Palliative care [] [] Receiving care in room [] Pre-surgical visit [] Trauma [] Long length of stay [] ICU visit [] Other: Relational/Emotional Strength [] Patient feels connected with others/family/visitors/staff [] Distress [] Loneliness/isolation [] Abandonment Spirituality of Patient [] Person of [place] [] Attends Synagogue of their [place] [] Believes in Prayer [] Reads Bible or Shinto materials [] There are Spiritual issues to be addressed [employer] [employer] Interventions [] Prayer [] Active listening [] Non-anxious presence [] Spiritual/emotional support [] Crisis/trauma care [] Spiritual counseling [] Bereavement support [] Provided bereavement packet [] Provided Bible/devotional materials [] Provided toy/stuffed animal, coloring book to patient or family member [] Provided Communion [] Anointing/[place] [] Salvation [] Completed spiritual assessment [] Other: Impact on Illness or Injury [] Angry [] Fearful [] Anxious [] Often cries [] Exhaustion [] Unable to work [] Unable to attend lutheran [] Unable to walk/stand [] Unable to read [] Unable to drive [] Unable to eat/drink [] Unable to sleep [] Unable to be with family [] Patient intubated [] Other: Summary Time spent with patient
[2020-04-10 14:23] VITALS: BP 111/73; PULSE 50; RESP 13; TEMP 36.6; O2SAT 100
--- NOTE | 2020-04-12 09:41 | PC.RESP ---
PATIENT DOES NOT HAVE A QUALIFYING HX OF LUNG DISEASE AND DOES NOT QUALIFY FOR PULMONARY REHAB AT THIS TIME.
== END 2020-04-10 13:57 | disposition home or self-care (01) ==
LOC: ER 13:36 → CSU 15:33
PROVIDERS: Admitting Provider Family Medicine; Emergency Provider Family Medicine; PCP Family Medicine; Visit Provider Family Medicine
DX: I48.91 Unspecified atrial fibrillation (principal); K29.00 Acute gastritis without bleeding; K21.9 Gastro-esophageal reflux disease without esophagitis; I10 Essential (primary) hypertension; Z79.899 Other long term (current) drug therapy; Z82.49 Family history of ischemic heart disease and other diseases of the circulatory system
CPT/HCPCS: 12345; 36415; 71045; 80053; 80061; 81001; 83036; 83735; 83880; 84100; 84443; 84484; 85025; 93005; 93306; 96374; 99283; 99285; G0378; J3490; J7040

== ENCOUNTER 2020-04-15 18:33 | Emergency (ER) | payer OTHER, SELFPAY ==
--- NOTE | 2020-04-15 18:35 | ECG_ITS ---
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 Measurements Intervals [place] Rate: 53 P: 50 [place]: 167 QRS: 35 QRSD: 96 T: 56 QT: 432 QTc: 409 Interpretive Statements SINUS BRADYCARDIA MINIMAL ST DEPRESSION [0.025+ mV ST DEPRESSION] Compared to ECG 04/09/2020 21:52:33 Atrial fibrillation no longer present ST (T wave) deviation still present Electronically Signed On 04-15-2020 23:45:33 CDT by Natalie Clayton M.D. [id number]
--- NOTE | 2020-04-15 18:35 | XRR_ITS ---
PROCEDURE INFORMATION: Exam: XR Chest, 1 View Exam date and time: 04/15/2020 6:50 PM Age: 64 years old Clinical indication: Type not specified; Patient HX: Chest pain x 1 hour; Additional info: Cp TECHNIQUE: Imaging protocol: XR of the chest Views: 1 view. COMPARISON: CR XR chest 1V portable [id number] 04/09/2020 2:00 PM FINDINGS: Lungs: Hyperinflation, interstitial prominence, and chronic granulomatous disease. Pleural space: No pleural effusion. Heart/Mediastinum: No cardiomegaly. Bones/joints: Unremarkable. XR/XR chest 1V portable [id number] IMPRESSION: Hyperinflation, interstitial prominence, and chronic granulomatous disease.
[2020-04-15 18:42] VITALS: BP 193/98; PULSE 58; RESP 16; TEMP 37.1; O2SAT 100; BMI 23.6
--- NOTE | 2020-04-15 18:45 | ED_ITS ---
HPI - Chest Pain General: Chief Complaint: Chest Pain Stated Complaint: cp Time Seen by Provider: 04/15/20 18:36 Source: patient Mode of arrival: ambulatory Limitations: no limitations History of Present Illness: HPI narrative: 64-year-old female who was admitted last week with new onset A. fib. Patient started on metoprolol and states she has had some bradycardia since then. States today she started feel some palpitations and felt flushed and had some chest pain. States her pain was sharp pain mainly in her left chest. States this is been for roughly an hour. States is very mild in nature. Denies any vomiting. Denies any worsening or improving factors. complaint: chest pain Onset (ago): hour(s) Timing of current episode: constant Prior episodes: Yes Onset: during rest Pain location: substernal Pain radiation: none Severity: mild Relieving factors: nothing Exacerbating factors: nothing Associated symptoms: Reports palpitations; Deny abdominal pain, dyspnea, fever(s), nausea or vomiting Review of Systems Const: Denies: fever(s), chills, body aches or change in appetite Eyes: Denies: blurry vision or eye discomfort ENMT: Denies: throat pain or dental pain Card: Reports: chest pain and palpitations Resp: Denies: dyspnea GI: Denies: abdominal pain, nausea, vomiting or diarrhea : Denies: dysuria Musc: Denies: neck pain or back pain Skin/Breast: Denies: rash Neuro: Denies: headache(s) Psych: Denies: depression Chriss/Lymph: Denies: easy bruising All/Imm: Denies: urticaria PFSH ED PFSH: Medical History Family history of coronary artery disease Gastritis GERD (gastroesophageal reflux disease) Surgical History Status post appendectomy Status post cholecystectomy Status post hysterectomy Family History Father Stroke Atrial fibrillation Mother CAD (coronary artery disease) Social History Smoking and tobacco status: never smoked Alcohol intake: never Physical Exam Const: COMMON NORMALS: no acute distress, patient oriented x3 and healthy appearing HENMT: COMMON NORMALS: normocephalic and atraumatic HEAD & SCALP: normocephalic and atraumatic Eye: COMMON NORMALS: Equal, round and reactive pupils present and EOMs intact bilaterally PUPIL: Yes Equal, round and reactive pupils present Neck/C-Spine: COMMON NORMALS: full ROM and supple Chest: COMMONS NORMALS: normal inspection of the chest and normal palpation of entire chest wall Resp: COMMON NORMALS: normal respiratory effort, No retractions, No use of accessory muscles and clear to auscultation bilaterally AUSCULTATION: clear to auscultation bilaterally Cardio: COMMON NORMALS: regular rate, regular rhythm and No murmurs present (Cardio) RATE: regular rate RHYTHM: regular rhythm GI: COMMON NORMALS: Normal to inspection, nondistended, normoactive bowel sounds present, Soft to palpation, non-tender and no masses PALPATION: Yes Soft to palpation Extremity: COMMON NORMALS: normal to inspection and full ROM Neuro: COMMON NORMALS: patient oriented x3, moves all extremities and no focal motor deficits Psych: COMMON NORMALS: mental status grossly normal, Normal thought process present and cooperative THOUGHT PROCESS: Normal thought process present Skin: COMMON NORMALS: no rashes or lesions noted and no wounds GENERAL SKIN EXAM: no rashes or lesions noted Course Vital Signs: Vital signs: Vital Signs Temperature 98.7 F 04/15/20 18:42 Pulse Rate 56 L 04/15/20 20:16 Respiratory Rate 18 04/15/20 20:16 Blood Pressure 144/81 04/15/20 20:16 Pulse Oximetry 99 04/15/20 20:16 MDM - Chest Pain MDM Narrative: Medical decision making narrative: Patient presents with chest pain is atypical in nature. Patient's initial and repeat troponins here are negative. She has been bradycardic and did recently start metoprolol for A. fib. We will decrease her dose of metoprolol from 25 twice daily to 12.5 twice daily. Patient was on Norvasc before for her high blood pressure and her blood pressures been running high and will start her on lisinopril. She is to follow- up with her PCP in 3 to 5 days. She is return if worsening. She understands and agrees if worsening. Lab Data: Labs: Lab Results 08/31/20 08/31/20 08/31/20 Range/Units 18:50 18:50 18:50 WBC 5.1 (4.0-10.0) 10^3/ uL RBC 4.42 (4.1-5.3) 10^6/u L Hgb 13.2 (11.5-15.3) g/dL Hct 40.4 (37.0-47.0) % MCV 91.4 (81-99) fL MCH 29.9 (28.0-34.0) pg MCHC 32.7 (30.0-36.0) g/dL RDW 12.1 (12.1-15.1) % Plt Count 226 (130-400) 10^3/c mm MPV 9.6 (7.4-10.4) fL Neut % (Auto) 43.7 % Lymph % (Auto) 40.8 % [place] % (Auto) 13.3 % Eos % (Auto) 1.6 % Baso % (Auto) 0.4 % Neut # (Auto) 2.21 (1.8-7.7) 10^3/u L Lymph # (Auto) 2.1 (0.8-4.8) 10^3/u L [place] # (Auto) 0.7 (0.2-0.9) 10^3/u L Eos # (Auto) 0.1 (0.0-0.8) 10^3/u L Baso # (Auto) 0.0 (0.0-0.1) 10^3/u L Nucleated RBC % (a uto) 0 % Nucleated RBCs # 0.0 /100WBC PT 14.50 (12.1-14.9) SECO NDS INR 1.09 (0.8-1.2) Sodium 140 (136-145) mmol/L Potassium 3.6 (3.5-5.1) mmol/L Chloride 105 (98-107) mmol/L Carbon Dioxide 26 (22-29) mmol/L Anion Gap 12.6 (5-19) BUN 15 (8-23) mg/dL Creatinine 1.0 H (0.5-0.9) mg/dL GFR Calculation 56.2 L (90-130) mL/min Glucose 98 (65-115) mg/dL Calculated Osmolal ity 286 (285-295) mOsm/k g Calcium 9.3 (8.5-10.5) mg/dL Total Bilirubin 0.4 (0.15-1.2) mg/dL AST 19 (0-32) U/L ALT 19 (0-33) U/L Alkaline Phosphata se 71 (35-105) IU/L Troponin T Baselin e (0-10) ng/L Troponin T 120 Min [place] (0-10) ng/L Delta Troponin T (0-10) ABS# Total Protein 7.4 (6.6-8.7) g/dL Albumin 4.5 (3.5-5.2) g/dL Globulin 2.9 (1.3-4.6) g/dL 04/15/20 04/15/20 Range/Units 18:50 20:20 WBC (4.0-10.0) 10^3/ uL RBC (4.1-5.3) 10^6/u L Hgb (11.5-15.3) g/dL Hct (37.0-47.0) % MCV (81-99) fL MCH (28.0-34.0) pg MCHC (30.0-36.0) g/dL RDW (12.1-15.1) % Plt Count (130-400) 10^3/c mm MPV (7.4-10.4) fL Neut % (Auto) % Lymph % (Auto) % [place] % (Auto) % Eos % (Auto) % Baso % (Auto) % Neut # (Auto) (1.8-7.7) 10^3/u L Lymph # (Auto) (0.8-4.8) 10^3/u L [place] # (Auto) (0.2-0.9) 10^3/u L Eos # (Auto) (0.0-0.8) 10^3/u L Baso # (Auto) (0.0-0.1) 10^3/u L Nucleated RBC % (a uto) % Nucleated RBCs # /100WBC PT (12.1-14.9) SECO NDS INR (0.8-1.2) Sodium (136-145) mmol/L Potassium (3.5-5.1) mmol/L Chloride (98-107) mmol/L Carbon Dioxide (22-29) mmol/L Anion Gap (5-19) BUN (8-23) mg/dL Creatinine (0.5-0.9) mg/dL GFR Calculation (90-130) mL/min Glucose (65-115) mg/dL Calculated Osmolal ity (285-295) mOsm/k g Calcium (8.5-10.5) mg/dL Total Bilirubin (0.15-1.2) mg/dL AST (0-32) U/L ALT (0-33) U/L Alkaline Phosphata se (35-105) IU/L Troponin T Baselin e 6 (0-10) ng/L Troponin T 120 Min [place] 6.00 (0-10) ng/L Delta Troponin T 0 (0-10) ABS# Total Protein (6.6-8.7) g/dL Albumin (3.5-5.2) g/dL Globulin (1.3-4.6) g/dL Imaging Data^: CXR: Attestation: I personally reviewed and interpreted this imaging study as follows: My impression: no acute abnormality EKG Data^: EKG 1: Attestation: I personally reviewed and interpreted this EKG as follows: EKG interpretation date: 04/15/20 EKG interpretation time: 18:53 Interpretation: sinus varun hr [address] or t wave abnormalities qrs 96 qtc 416 EKG 2: Attestation: I personally reviewed and interpreted this EKG as follows: EKG interpretation date: 04/15/20 EKG interpretation time: 20:27 Interpretation: sinus varun hr [address] or t wave abnormalities qrs 82 qtc 428 Discharge Plan Discharge Patient Disposition: Home Clinical Impression: Chest pain Qualifiers: Chest pain type: unspecified Qualified Code(s): R07.9 - Chest pain, unspecified Hypertension Qualifiers: Hypertension type: essential hypertension Qualified Code(s): I10 - Essential (primary) hypertension Condition: Stable Prescriptions: New metoprolol tartrate 25 mg tablet 12.5 mg PO BID Qty: 30 RF: 0 lisinopril 10 mg tablet 10 mg PO DAILY Qty: 30 RF: 0 No Action multivitamin [Multiple Vitamins] Tablet 1 tab PO DAILY RF: 0 Enzyme Digest Capsule 1 cap PO DAILY RF: 0 Dgl 1 tab PO DAILY RF: 0 Pretty-C with Bioflavonoids 1 tab PO DAILY RF: 0 Probiotic 1 cap PO DAILY RF: 0 magnesium 1 tab PO DAILY RF: 0 metoprolol tartrate 25 mg Tablet 25 mg PO BID 30 Days Qty: 60 RF: 0 Eliquis 5 mg Tablet 5 mg PO BID 30 Days Qty: 60 RF: 0 pantoprazole 40 mg tablet,delayed release (DR/EC) 40 mg PO BID Qty: 0 RF: 0 aspirin 81 mg tablet,delayed release (DR/EC) 81 mg PO DAILY 30 Days Qty: 30 RF: 0 atorvastatin 40 mg tablet 40 mg PO DAILY 30 Days Qty: 30 RF: 0 famotidine 20 mg Tablet 20 mg PO BID RF: 0 Flonase Allergy Relief 50 mcg/actuation [place],Suspension 1 spray INTRANASAL DAILY RF: 0 Discharge Orders: Discharge Order (Routine); Ordered 04/15/20 Ordered By: Nash Lomas Referrals: Osman Askew MD [Primary Care Provider] - 1-3 days Discharge Diet: Advance as tolerated Discharge Activity: Resume usual activity Patient Instructions: Chest Pain (ED), Hypertension (ED) Coding Level of Care Code ED Personalization Specialist for Chg Fwd Exam Comprehensive
[2020-04-15 19:00] LABS: Basophils % 0.4 %; Eosinophils # 0.1 10^3/uL (0.0-0.8); Eosinophils % 1.6 %; Hematocrit 40.4 % (37.0-47.0); Hemoglobin 13.2 g/dL (11.5-15.3); Lymphocytes # 2.1 10^3/uL (0.8-4.8); Lymphocytes % 40.8 %; Mean Corpuscular HGB Conc 32.7 g/dL (30.0-36.0); Mean Corpuscular Hemoglobin 29.9 pg (28.0-34.0); Mean Corpuscular Volume 91.4 fL (81-99); Mean Platelet Volume 9.6 fL (7.4-10.4); Monocytes # 0.7 10^3/uL (0.2-0.9); Monocytes % 13.3 %; Neutrophils # 2.21 10^3/uL (1.8-7.7); Neutrophils % 43.7 %; Nucleated Red Blood Cells % 0 %; Platelet Count 226 10^3/cmm (130-400); Red Blood Count 4.42 10^6/uL (4.1-5.3); Red Cell Distribution Width 12.1 % (12.1-15.1); White Blood Count 5.1 10^3/uL (4.0-10.0)
[2020-04-15 19:12] LABS: INR 1.09 (0.8-1.2)
[2020-04-15 19:15] VITALS: BP 163/89; PULSE 51; RESP 17; O2SAT 100
[2020-04-15 19:20] LABS: Alanine Aminotransferase 19 U/L (0-33); Albumin Level 4.5 g/dL (3.5-5.2); Alkaline Phosphatase 71 IU/L (35-105); Anion Gap 12.6 (5-19); Aspartate Amino Transferase 19 U/L (0-32); Blood Urea Nitrogen 15 mg/dL (8-23); Calcium 9.3 mg/dL (8.5-10.5); Carbon Dioxide 26 mmol/L (22-29); Chloride 105 mmol/L (98-107); Globulin 2.9 g/dL (1.3-4.6); Glomerular Filtration Rate 56.2 mL/min (90-130); Glucose 98 mg/dL (65-115); Osmolality Calculated 286 mOsm/kg (285-295); Potassium 3.6 mmol/L (3.5-5.1); Sodium 140 mmol/L (136-145); Total Bilirubin 0.4 mg/dL (0.15-1.2); Total Protein 7.4 g/dL (6.6-8.7)
[2020-04-15] MEDS: hyDRALAzine 20 mg/mL INJ 1 mL 10 MG IVP (19:20)
[2020-04-15 19:46] LABS: Troponin(5th) Baseline 6 ng/L (0-10)
[2020-04-15 20:16] VITALS: BP 144/81; PULSE 56; RESP 18; O2SAT 99
--- NOTE | 2020-04-15 20:35 | ECG_ITS ---
[facility] Test Date: 2020-04-15 Pat Name: Surekha Pantoja Department: Room: Gender: Female [employer]: : 1955 Requested By: Nash Lomas Order Number: [id number] Taylor MD: Natalie Clayton M.D. Measurements Intervals [place] Rate: 49 P: 52 [place]: 165 QRS: 45 QRSD: 93 T: 48 QT: 458 QTc: 415 Interpretive Statements SINUS BRADYCARDIA MINIMAL ST DEPRESSION [0.025+ mV ST DEPRESSION] Compared to ECG 04/09/2020 21:52:33 Atrial fibrillation no longer present ST (T wave) deviation still present Electronically Signed On 04-15-2020 23:50:45 CDT by Natalie Clayton M.D. [id number]
[2020-04-15 21:00] VITALS: BP 139/79; PULSE 50; RESP 16; O2SAT 99
[2020-04-15 21:06] LABS: Troponin 5 2HR Delta 0 ABS# (0-10)
[2020-04-15 21:47] VITALS: BP 140/79; PULSE 45; RESP 14; O2SAT 100
== END 2020-04-15 21:56 | disposition home or self-care (01) ==
PROVIDERS: Emergency Provider Emergency Medicine; PCP Family Medicine
DX: R07.9 Chest pain, unspecified (principal); I10 Essential (primary) hypertension; Z79.01 Long term (current) use of anticoagulants; Z79.82 Long term (current) use of aspirin
CPT/HCPCS: 12345; 36415; 71045; 80053; 84484; 85025; 85610; 93005; 96374; 99283; 99284; J0360

== ENCOUNTER 2020-05-31 09:02 | Outpatient (CLI) | payer OTHER, SELFPAY ==
[2020-05-31 09:00] VITALS: BP 107/69; PULSE 62; RESP 16; TEMP 36.3; O2SAT 98
[2020-05-31 09:03] VITALS: BMI 23.3
[2020-05-31] MEDS: denosumab 60 mg SDV SUBCUT (09:15)
--- NOTE | 2020-05-31 09:30 | PC.NURSE ---
A&O x4. Denies s&s of infection. Discussed medication changes and recent history of Afib. Now under control with medication. Last bone scan 1 year ago.
[2020-05-31 09:40] VITALS: BP 102/63; PULSE 56; RESP 16; TEMP 36.4; O2SAT 98
== END 2020-05-31 09:03 | disposition home or self-care (01) ==
LOC: RHEOACUTE 09:03
PROVIDERS: PCP Family Medicine; Visit Provider Internal Medicine Rheumatology
DX: M81.0 Age-related osteoporosis without current pathological fracture (principal)
CPT/HCPCS: 96372; J0897

== ENCOUNTER 2020-06-05 07:30 | Outpatient (CLI) | payer OTHER, SELFPAY ==
[2020-06-05 07:39] VITALS: BMI 23.1
--- NOTE | 2020-06-05 07:40 | ECG_ITS ---
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 Interpretive Statements NAME OF STUDY: LEXISCAN SESTAMIBI STRESS TEST INDICATION: Chest PainRESULTS TO ELYSSA ARRIAZA MD PROCEDURE: At the baseline, the EKG revealed bradycardia with a rate of [address] changes. The baseline blood pressure was 179/100 mm Hg with a heart rate of 53 beats/min. Lexiscan was infused over a period of 20 seconds. A total of 0.4 milligrams of Lexiscan was infused. The stress phase was continued for a total of 5 minutes. Heart rate at the end of the stress phase was 83 with a blood pressure 153/91. The EKG at the peak infusion revealed no significant changes. Sestamibi was injected 20 seconds after the Lexiscan infusion. Blood pressure at the end of the recovery phase was 141/88 with a heart rate of 74 per minute. CONCLUSION: 1. No significant EKG changes with the LexiScan infusion 2. No LexiScan induced chest pain or cardiac arrhythmia 3. Normal blood pressure and heart rate response 4. Sestamibi/sestamibi perfusion scan pending; see separate report. Electronically Signed On 06-06-2020 8:56:05 CDT by Natalie Clayton M.D. [id number]
--- NOTE | 2020-06-05 07:41 | NMCV_ITS ---
NM ferdinand perf SPECT r/s* [id number] Surekha Pantoja Age: 64 Gender: F : 1955 Exam Date: 06/05/2020 08:36 Ordering Phys: Natalie Clayton MD ([email or web address]) Technologist: JAIMIE Connors Exam Location: [facility] Indications: CHEST PAIN STRESS TEST Please [facility] for [facility] IMAGE PROTOCOL Rest/Stress 1 Lexiscan Day Radiopharmaceutical Dose (mCi) Administration Site Administered by Rest: Tc-99m 10.6 IV JAIMIE Myles Sestamibi Stress:Tc-99m 32.9 IV JAIMIE Connors Sestamijessica Rest: 05-Jun-2020 60 Discovery 630 Stress: 05-Jun-2020 30 Discovery 630 0.4mg Lexiscan. Images obtained in supine and prone position. SPECT RESULTS Technical Quality: Excellent Raw Data Analysis: Normal Image Corrections: No attenuation or motion correction applied Summed Stress Score: 0 Summed Rest Score: 2 Summed Difference Score: 0 PERFUSION FINDINGS Small areas of slightly decreased tracer uptake was noted in the anterior wall and inferior wall regions. No significant reversibility was noted in these regions FUNCTIONAL RESULTS (calculated via Gated SPECT) Stress Image LV EF (%): 83 Stress EDV (mL):64 TID: 0.82 Stress ESV (mL):11 FUNCTIONAL FINDINGS: Segmental wall motion analysis revealing no gross wall motion normalities. IMPRESSIONS 1. Myocardial perfusion imaging revealing small areas of slightly decreased persistent tracer uptake in the anterior wall and apical regions, suggestive of myocardial scarring versus attenuation artifacts. 2. Normal LV ejection fraction of 83%. 3. LV wall motion analysis revealing no gross wall motion normalities. 4. Normal LV volume. No significant coronary ischemia, based on the above findings. Dr Natalie Clayton MD [facility] (Electronically Signed) Final Date: 05 June 2020 15:04 S
--- NOTE | 2020-06-05 09:39 | SUR.PREOP ---
Patient reports no pain or discomfort prior to the start of the procedure.
[2020-06-05] MEDS: regadenoson 0.4 Mg/5 ml Syringe IVP (09:40)
[2020-06-05 09:55] VITALS: BP 141/83; PULSE 72
== END 2020-06-05 07:31 | disposition home or self-care (01) ==
LOC: CDL 07:32
PROVIDERS: PCP Family Medicine; Visit Provider Internal Medicine Cardiovascular Disease
DX: R06.02 Shortness of breath (principal); I48.91 Unspecified atrial fibrillation
CPT/HCPCS: 78452; 93017; A9500; J2785

== ENCOUNTER 2020-06-28 08:28 | Outpatient (CLI) | payer OTHER, SELFPAY ==
--- NOTE | 2020-06-28 08:35 | CT_ITS ---
WS: [id number] CT scan of the abdomen and pelvis with Oral and IV contrast. Additional two-dimensional coronal and s agittal reconstruction was performed. 06/28/2020 Clinical Data: ABDOMINAL PAIN RUQ Comparison: CT abdomen and pelvis, 11/04/2008. DLP: 955.[address] scans at [facility] use at least one of these dose optimization techniques: automat ed exposure control; mA and/or kV adjustment per patient size (includes targeted exams where dose is matched to clinical indication); or iterative reconstruction. Findings: The lower lungs show no nodules, masses or effusions. The liver, spleen, adrenal glands and pancreas are normal. There are clips in the gallbladder fossa from a cholecystectomy. The kidneys show equal bilateral contrast excretion with no cyst or masses. No renal calculi, hydrone phrosis or mass is seen. The abdominal aorta is normal in size. No appendicitis or diverticulitis is seen. Oral contrast is in the stomach, small bowel and colon, an d there is no bowel dilatation. No abscess, adenopathy, ascites, mass, obstruction or free air is see n. The bladder is unremarkable. The uterus is normal. No inguinal hernia is seen. The bones of the lower thorax, lumbar spine, pelvis, and hips are normal. CT/CT abdomen pelvis w con* [id number] Impression: Negative CT scan of the abdomen and pelvis.
[2020-06-28] MEDS: iohexol 300 mg/mL 50 mL Btl PO (10:03)
[2020-06-28] MEDS: iohexol 300 mg/mL 100 mL Btl IV (10:19)
== END 2020-06-28 08:29 | disposition home or self-care (01) ==
PROVIDERS: PCP Family Medicine; Visit Provider Family Medicine
DX: R10.11 Right upper quadrant pain (principal)
CPT/HCPCS: 74177; 82274; 83630; 83993; 87493; Q9967

== ENCOUNTER 2020-08-21 09:36 | Outpatient (CLI) | payer OTHER, SELFPAY ==
--- NOTE | 2020-08-21 09:40 | MM_ITS ---
WS: [id number] BILATERAL DIGITAL SCREENING MAMMOGRAPHY WITH CAD CLINICAL INFORMATION: SCREENING HISTORY: Screening mammogram. No current complaints. COMPARISON: TECHNIQUE: Bilateral CC and MLO views. FINDINGS: The breasts are composed of heterogeneous fibroglandular density tissue, which can limit the detectio n of small underlying mass lesions. No suspicious mass, asymmetry, calcifications, or architectural d istortion. No evidence of malignancy. MM/[place] [id number] IMPRESSION: BI-RADS: 1-Negative FOLLOW UP: 1 Year Follow-up Recommend return to annual screening mammography.
== END 2020-08-21 09:37 | disposition home or self-care (01) ==
LOC: RADSHAW 09:38
PROVIDERS: PCP Family Medicine; Visit Provider Family Medicine
DX: Z12.31 Encounter for screening mammogram for malignant neoplasm of breast (principal)
CPT/HCPCS: 77067

== ENCOUNTER 2020-12-18 14:53 | Outpatient (CLI) | payer OTHER, SELFPAY ==
[2020-12-18 15:06] VITALS: BP 116/67; PULSE 57; RESP 16; TEMP 37.3; O2SAT 99
[2020-12-18] MEDS: denosumab 60 mg SDV SUBCUT (15:14)
== END 2020-12-18 14:54 | disposition home or self-care (01) ==
LOC: ONCMED 14:55
PROVIDERS: PCP Family Medicine; Visit Provider Family Medicine
DX: M81.0 Age-related osteoporosis without current pathological fracture (principal)
CPT/HCPCS: 96372; J0897

== ENCOUNTER 2021-10-14 11:24 | Outpatient (CLI) | payer OTHER, SELFPAY ==
--- NOTE | 2021-10-14 11:36 | XR_ITS ---
WS: [id number] SCREENING DEXA SCAN [facility] [facility] [employer] CLINICAL INFORMATION: OSTEOPORSIS COMPARISON: June 28, 2019 FINDINGS: The L1-L4 bone mineral density measures 0.941 g/cm2. This corresponds to a T score score of -2.0 and Z score of -0.7. Left femoral neck bone mineral density measures 0.728 g/cm2. This corresponds to a T score of -2.2 an d Z score of -1.2. Right femoral neck bone mineral density measures 0.697 g/cm2. This corresponds to a T score -2.5of an d Z score of -1.5. Mean femoral neck bone mineral density measures 0.712 g/cm2. This corresponds to a T score of -2.3 an d Z score of -1.4. XR/XR DEXA axial skeleton* [id number] IMPRESSION: Osteopenia Patient's FRAX calculated 10 year probability for major osteoporotic fracture i s 10.9 % and osteoporotic hip fracture is 1.7%.
== END 2021-10-14 11:25 | disposition home or self-care (01) ==
LOC: RAD 11:29
PROVIDERS: PCP Family Medicine; Visit Provider Family Medicine
DX: M81.0 Age-related osteoporosis without current pathological fracture (principal); M85.80 Other specified disorders of bone density and structure, unspecified site
CPT/HCPCS: 77080

== ENCOUNTER 2021-11-13 06:00 | Outpatient (RCR) | payer OTHER, SELFPAY | END 2021-11-13 23:59 | disposition home or self-care (01) | LOC: SPT 06:00 | PROVIDERS: PCP Family Medicine; Referring Provider Family Medicine; Visit Provider Family Medicine | DX: S32.030D Wedge compression fracture of third lumbar vertebra, subsequent encounter for fracture with routine healing (principal); X58.XXXD Exposure to other specified factors, subsequent encounter | CPT/HCPCS: 97760; L0637 ==

== ENCOUNTER 2021-12-11 12:07 | Outpatient (CLI) | payer OTHER, SELFPAY ==
--- NOTE | 2021-12-11 12:27 | CT_ITS ---
WS: [id number] CT LUMBAR SPINE TECHNIQUE: Noncontrast CT of the lumbar spine with coronal and sagittal reformatted images. CLINICAL INFORMATION: COMPRESSION FX COMPARISON: Radiograph November 10, 2021 DLP: 1020.[address] scans at [facility] use at least one of these dose optimization techniques: automated e xposure control; mA and/or kV adjustment per patient size (includes targeted exams where dose is matc hed to clinical indication); or iterative reconstruction. FINDINGS: Mild lumbar curve. Mild compression of the superior endplates L2, L3, L4, and L5 with mild endplate s clerosis. Only minimal loss vertebral body height. No retropulsion. No high-grade central canal steno sis. Endplate compression is similar to the recent radiographs. The L4 and L5 endplate compression appears new or progressed compared to the recent radiograph. L2 an d L3 endplate compression appears stable. L1-L2: Normal. L2-L3: Mild annular bulging. Slight effacement of ventral thecal sac. Spinal canal and foramen are pa tent. Mild facet arthropathy. L3-L4: Mild annular bulging. Narrowing of the subarticular recess bilaterally. Mild facet arthropathy with ligamentum flavum hypertrophy. Foramen are patent. L4-L5: Mild annular bulging with mild central canal stenosis. Impingement on the LEFT particular rece ss traversing LEFT L5 nerve root. Moderate facet arthropathy ligament flavum hypertrophy. Mild LEFT a nd no significant RIGHT foraminal narrowing. L5-S1: Mild annular bulging. Spinal canal and foramen are patent. Mild facet arthropathy. Lung bases are well aerated. Cholecystectomy clips. Splenic granulomas. Adrenal glands are normal. CT/CT lumbar spine wo con* [id number] IMPRESSION: 1. Mild compression of the superior endplates L2 L3 L4 and L5 slightly worse a t L2 with minimal loss vertebral body height approximately 10%. No retropulsion . 2. L4 and L5 endplate compression appears new or progressed compared to the ra diograph November 10, 2021. 3. Moderate central canal stenosis L4-L5 with impingement on the LEFT subartic ular recess and traversing LEFT L5 nerve root. Moderate facet arthropathy ligam entum flavum hypertrophy at this level. 4. Narrowing of the subarticular recess due to disc bulging with facet arthrop athy and ligament flavum hypertrophy at L2-L3 and L3-L4. 5. No high-grade foraminal narrowing.
== END 2021-12-11 12:08 | disposition home or self-care (01) ==
PROVIDERS: PCP Family Medicine; Visit Provider Family Medicine
DX: S32.030D Wedge compression fracture of third lumbar vertebra, subsequent encounter for fracture with routine healing (principal); S32.020D Wedge compression fracture of second lumbar vertebra, subsequent encounter for fracture with routine healing; S32.040D Wedge compression fracture of fourth lumbar vertebra, subsequent encounter for fracture with routine healing; S32.050D Wedge compression fracture of fifth lumbar vertebra, subsequent encounter for fracture with routine healing; M48.061 Spinal stenosis, lumbar region without neurogenic claudication; X58.XXXD Exposure to other specified factors, subsequent encounter
CPT/HCPCS: 72131

== ENCOUNTER 2022-01-06 10:16 | Outpatient (CLI) | payer OTHER, SELFPAY ==
--- NOTE | 2022-01-06 10:23 | MM_ITS ---
WS: [id number] BILATERAL SCREENING DIGITAL BREAST TOMOSYNTHESIS MAMMOGRAM WITH CAD HISTORY: SCREENING COMPARISON: 08/21/2020 and 06/28/2019 Bilateral CC and MLO views with tomosynthesis and synthetic mammography submitted. Computer aided det ection analyzed. Breast composition: There are scattered areas of fibroglandular density. No suspicious masses, microc alcifications or architectural distortion. MM/[place] [id number] IMPRESSION: BI-RADS: 1-Negative FOLLOW UP: 1 Year Follow-up
== END 2022-01-06 10:17 | disposition home or self-care (01) ==
LOC: RAD 10:21
PROVIDERS: PCP Family Medicine; Visit Provider Family Medicine
DX: Z12.31 Encounter for screening mammogram for malignant neoplasm of breast (principal)
CPT/HCPCS: 77063; 77067

== ENCOUNTER 2023-01-13 09:19 | Outpatient (CLI) | payer MEDICARE, OTHER, SELFPAY ==
--- NOTE | 2023-01-13 09:32 | MM_ITS ---
WS: [id number] BILATERAL SCREENING DIGITAL TOMOSYNTHESIS MAMMOGRAM WITH CAD HISTORY: SCREENING COMPARISON: 01/06/2022, 08/21/2020 Bilateral CC and MLO views with tomosynthesis and synthetic mammography submitted. Computer aided det ection analyzed. Breast composition: There are scattered areas of fibroglandular density. No suspicious masses, microc alcifications or architectural distortion. MM/[place] [id number] IMPRESSION: BI-RADS: 2-Benign FOLLOW UP: 1 Year Follow-up
== END 2023-01-13 09:20 | disposition home or self-care (01) ==
LOC: RAD 09:26
PROVIDERS: PCP Family Medicine; Visit Provider Family Medicine
DX: Z12.31 Encounter for screening mammogram for malignant neoplasm of breast (principal)
CPT/HCPCS: 77063; 77067

== ENCOUNTER → 2023-03-17 14:47 | Outpatient (BNVA) | payer MEDICARE, OTHER, SELFPAY | PROVIDERS: PCP Family Medicine; Visit Provider Nurse Practitioner Family | DX: I48.0 Paroxysmal atrial fibrillation (principal); I10 Essential (primary) hypertension; Z79.01 Long term (current) use of anticoagulants | CPT/HCPCS: 99214 ==

== ENCOUNTER 2023-04-13 13:50 | Oncology outpatient (recurring) (ONCR) | payer MEDICARE, OTHER, SELFPAY ==
--- OUTSIDE RECORDS SUMMARY | 2023-04-13 13:52 | XMS_ITS | Patient Health Record ---
Author Name Unknown Organization [facility] Address [address] [place] [address] Care Team Providers Care Quality Specialist Name Role Phone Azar FINLEY, Osman Primary Care Provider Estuardo Lemus Unavailable [phone] ALLERGIES Allergen (clinical drug ingredient) Drug/Non Drug Allergy documented on EMR Reaction Allergy Type Onset Date Status amoxicillin Amoxicillin Unknown Drug Allergy Act jaimie Sertraline HCl , Drug Allergy Ac tive Substance with sulfonamide structure and antibacterial mechanism of action (substance) Sulfa Antibiotics Unknown Drug Allergy Active REASON FOR REFERRAL No Information MEDICATIONS Medication SIG (Take, Route, Frequency, Duration) Notes Start Date End Date Status Tums 500 MG 1 tablet Orally Once a day Active Prolia 60 MG/ML as directed Subcutan eous every 6 months Active amLODIPine Besylate 5 MG 1 tablet Orally Once a day Active Lisinopril 10 MG 1 tablet Orally Once a day Active Eliquis 5 MG as directed Orally t wice a day Active Pantoprazole Sodium 40 MG 1 tablet Orally Once a day Active Mylanta Maximum Strength 400-400-40 MG/5ML 10 ml as needed Orally 3-4 times per day Active SOCIAL HISTORY Tobacco Use: Social History Observation Description Date Details (start date - stop date) Never Smoker NA - NA Sex Assigned At : Social History Observation Description Sex Assigned At Unknown Tobacco Use/Smoking Question Answer Notes Are you a nonsmoker Alcohol Screen (Audit-C) Question Answer Notes Did you have a drink containing alcohol in the p ast year? No Points 0 Interpretation Negative PLAN OF TREATMENT No Information Insurance Providers Payer Name Payer Address Payer Phone Subscriber Number Group Number Insured Name Patient Relationship to Insured Coverage Start Date Coverage End Date [employer] [address] [address] [place] [phone] [id number] Surekha Kidd Self - patient is the insured MEDICAL (GENERAL) HISTORY Medical History History ICD Code Problem:Benign essential hypertension (d isorder) , Status :: Active Problem:Gastroesophageal reflux disease (disorder) , Status :: Active migraine headaches osteoporosis Atrial fibrillation measles mumps chicken pox bladder infections back trouble high blood pressure bronchitis GERD IBS Surgical History Surgery Date(Month/Year) appendectomy section cholecystectomy tonsillectomy Hospitalization History Reason Date(Month/Year) see surgical hx
[2023-04-13] MEDS: denosumab 60 mg SDV SUBCUT (14:14)
[2023-04-13 14:20] VITALS: BP 118/66; PULSE 63; RESP 16; TEMP 36.5; O2SAT 99
== END 2023-04-15 23:59 | disposition home or self-care (01) ==
LOC: ONCMED 13:50
PROVIDERS: PCP Family Medicine; Visit Provider Family Medicine
DX: M81.0 Age-related osteoporosis without current pathological fracture (principal)
CPT/HCPCS: 96401; J0897

== ENCOUNTER → 2023-06-01 13:03 | Outpatient (BNVA) | payer MEDICARE, OTHER, SELFPAY | PROVIDERS: PCP Family Medicine; Visit Provider Podiatrist Foot & Ankle Surgery | DX: M77.41 Metatarsalgia, right foot | CPT/HCPCS: 99203 ==

== ENCOUNTER 2023-06-10 07:45 | Outpatient (CLI) | payer MEDICARE, OTHER, SELFPAY ==
--- NOTE | 2023-06-10 08:00 | US_ITS ---
WS: [id number] ULTRASOUND SOFT TISSUES RIGHT foot HISTORY: evaluate for neuroma COMPARISON: None available. TECHNIQUE: 2-D and color Doppler imaging is submitted. Ultrasound is performed of the intermetatarsal spaces to evaluate for possible Calhoun neuroma. Ultras ound directed to the fourth space. No soft tissue masses or hypoechoic masses are identified in the i ntermetatarsal spaces. IMPRESSION: No Calhoun neuroma identified. Attention to the fourth intermetatarsal space.
== END 2023-06-10 07:46 | disposition home or self-care (01) ==
LOC: RAD 07:45
PROVIDERS: PCP Family Medicine; Visit Provider Podiatrist Foot & Ankle Surgery
DX: M77.41 Metatarsalgia, right foot (principal); M79.671 Pain in right foot
CPT/HCPCS: 76882

== ENCOUNTER → 2023-06-30 11:03 | Outpatient (BNVA) | payer MEDICARE, OTHER, SELFPAY | PROVIDERS: PCP Family Medicine; Visit Provider Podiatrist Foot & Ankle Surgery | DX: G57.81 Other specified mononeuropathies of right lower limb (principal); M77.41 Metatarsalgia, right foot | CPT/HCPCS: 64455; J1100; J3301; J3490 ==

== ENCOUNTER → 2023-08-18 11:11 | Outpatient (BNVA) | payer MEDICARE, OTHER, SELFPAY | PROVIDERS: PCP Family Medicine; Visit Provider Podiatrist Foot & Ankle Surgery | DX: M77.41 Metatarsalgia, right foot (principal); G57.81 Other specified mononeuropathies of right lower limb | CPT/HCPCS: 99213 ==

== ENCOUNTER → 2023-10-06 08:53 | Outpatient (BNVA) | payer MEDICARE, OTHER, SELFPAY | PROVIDERS: PCP Family Medicine; Visit Provider Podiatrist Foot & Ankle Surgery | DX: M77.41 Metatarsalgia, right foot; G57.81 Other specified mononeuropathies of right lower limb; S90.31XA Contusion of right foot, initial encounter; X58.XXXA Exposure to other specified factors, initial encounter; E78.5 Hyperlipidemia, unspecified; I10 Essential (primary) hypertension; I48.91 Unspecified atrial fibrillation; R00.1 Bradycardia, unspecified | CPT/HCPCS: 73630; 99213; 99214 ==

== ENCOUNTER 2023-11-05 10:26 | Oncology outpatient (recurring) (ONCR) | payer MEDICARE, OTHER, SELFPAY ==
[2023-11-05] MEDS: denosumab 60 mg SDV SUBCUT (10:43)
[2023-11-05 10:45] VITALS: BP 106/69; PULSE 61; RESP 16; TEMP 36.5; O2SAT 99
== END 2023-11-14 23:59 | disposition home or self-care (01) ==
LOC: ONCMED 10:27
PROVIDERS: PCP Family Medicine; Visit Provider Family Medicine
DX: M81.0 Age-related osteoporosis without current pathological fracture (principal)
CPT/HCPCS: 96372; J0897

== ENCOUNTER 2024-01-25 08:33 | Oncology outpatient (recurring) (ONCR) | payer MEDICARE, OTHER, SELFPAY ==
--- NOTE | 2024-01-25 08:35 | MM_ITS ---
WS: [id number] BILATERAL 3D TOMOSYNTHESIS DIGITAL SCREENING MAMMOGRAPHY WITH CAD CLINICAL INFORMATION: SCREENING HISTORY: Screening mammogram. No current complaints. COMPARISON: 2022 TECHNIQUE: Bilateral CC and MLO views. FINDINGS: Scattered fibroglandular densities bilaterally. No suspicious focal mass, asymmetry, calcifications, or architectural distortion. No evidence of malignancy. MM/[place] [id number] IMPRESSION: BI-RADS: 1-Negative FOLLOW UP: 1 Year Follow-up Recommend return to annual screening mammography.
== END 2024-02-13 23:59 | disposition home or self-care (01) ==
LOC: RAD 08:33 → ONCMED 02-29 07:27
PROVIDERS: PCP Family Medicine; Visit Provider Family Medicine
DX: Z12.31 Encounter for screening mammogram for malignant neoplasm of breast (principal); R92.323 Mammographic fibroglandular density, bilateral breasts
CPT/HCPCS: 77063; 77067

== ENCOUNTER 2024-06-13 14:33 | Oncology outpatient (recurring) (ONCR) | payer MEDICARE, OTHER, SELFPAY ==
[2024-06-13] MEDS: denosumab 60 mg SDV SUBCUT (14:46)
== END 2024-06-15 23:59 | disposition home or self-care (01) ==
LOC: ONCMED 14:34
PROVIDERS: PCP Family Medicine; Visit Provider Family Medicine
DX: Z79.899 Other long term (current) drug therapy; M81.0 Age-related osteoporosis without current pathological fracture
CPT/HCPCS: 96372; J0897

== ENCOUNTER → 2024-11-21 10:05 | Outpatient (BNVA) | payer MEDICARE, OTHER, SELFPAY | PROVIDERS: PCP Family Medicine; Visit Provider Internal Medicine Cardiovascular Disease | DX: I48.91 Unspecified atrial fibrillation (principal); I10 Essential (primary) hypertension; E78.5 Hyperlipidemia, unspecified; R00.1 Bradycardia, unspecified | CPT/HCPCS: 99214 ==

== ENCOUNTER 2024-12-11 08:45 | Oncology outpatient (recurring) (ONCR) | payer MEDICARE, OTHER, SELFPAY ==
[2024-12-11 08:45] VITALS: BP 124/81; PULSE 63; RESP 16; TEMP 35.9; O2SAT 96
[2024-12-11] MEDS: denosumab 60 mg SDV SUBCUT (08:46)
== END 2024-12-13 23:59 | disposition home or self-care (01) ==
PROVIDERS: PCP Family Medicine; Visit Provider Family Medicine
DX: Z53.9 Procedure and treatment not carried out, unspecified reason; M81.0 Age-related osteoporosis without current pathological fracture; Z79.899 Other long term (current) drug therapy
CPT/HCPCS: 96372; J0897

== ENCOUNTER 2025-02-01 08:50 | Outpatient (CLI) | payer MEDICARE, OTHER, SELFPAY ==
--- NOTE | 2025-02-01 08:52 | MM_ITS ---
WS: [id number] BILATERAL SCREENING DIGITAL TOMOSYNTHESIS MAMMOGRAM WITH CAD HISTORY: SCREENING COMPARISON: 01/25/2024, 01/13/2023 Bilateral CC and MLO views with tomosynthesis and synthetic mammography submitted. Computer aided detection analyzed. Breast composition: There are scattered areas of fibroglandular density. No suspicious masses, microcalcifications or architectural distortion. MM/MM scr [place] tomosynthesis [id number] IMPRESSION: BI-RADS: 2 - Benign. FOLLOW UP: 1 Year Follow-up
== END 2025-02-01 08:51 | disposition home or self-care (01) ==
LOC: RAD 08:51
PROVIDERS: PCP Family Medicine; Visit Provider Family Medicine
DX: Z12.31 Encounter for screening mammogram for malignant neoplasm of breast (principal)
CPT/HCPCS: 77063; 77067

== ENCOUNTER 2025-05-23 15:15 | Outpatient (CLI) | payer MEDICARE, OTHER, SELFPAY ==
--- NOTE | 2025-05-23 15:21 | XR_ITS ---
WS: [id number] DEXA (DUAL ENERGY X-RAY ABSORPTIOMETRY) Bone mineral density was performed using a Snapt machine. HISTORY: OSTEOPOROSIS COMPARISON: 10/14/2021 Lumbar spine BMD (L1-L4): 1.042 g/cm2 T score: -1.1 Z score: 0.3 Total hip BMD: Left: 0.771 g/cm2. T score: -1.9 Z score: -0.7 Right: 0.737 g/cm2. T score: -2.1 Z score: -0.9 10 year probability of a major osteoporotic fracture is 11.5%. Compared to the prior study from 10/14/2021. Lumbar spine bone mineral density has increased by 10.7%. Bilateral hips bone mineral density has increased by 5.9%. XR/XR DEXA axial skeleton* 11030 IMPRESSION: OSTEOPENIA based upon the WHO classification for females. Significant increase in bone mineral density within the lumbar spine and hips s ruth ann the prior study.
== END 2025-05-23 15:16 | disposition home or self-care (01) ==
LOC: RAD 15:18
PROVIDERS: PCP Family Medicine; Visit Provider Family Medicine
DX: Z13.820 Encounter for screening for osteoporosis (principal); M81.0 Age-related osteoporosis without current pathological fracture; M85.80 Other specified disorders of bone density and structure, unspecified site
CPT/HCPCS: 77080